=== PATIENT | female | born 1985 | race Two or more races ===

== ENCOUNTER → 2017-02-06 | Outpatient (CLI) | payer OTHER ==
[~2017-02-06] MED LIST: NAPR220C2 PO
== END ==
LOC: STAR 15:31
PROVIDERS: ATTEND Obstetrics & Gynecology Female Pelvic Medicine and Reconstructive Surgery
DX: Z02.9 Encounter for administrative examinations, unspecified (principal)

== ENCOUNTER 2017-02-13 14:05 | Day surgery (SDC) | payer OTHER ==
[2017-02-06 15:48] VITALS: BP 140/94
[~2017-02-13] VITALS: Ht 157.5 cm; Wt 80.6 kg
[~2017-02-13 14:05] MED LIST changes: +BUPIVACAINE/PF 0.25% ONE
[2017-02-13] MEDS ORDERED: LACTATED RINGERS 1,000 ML IV SCH ×3 (14:41→20:10)
[2017-02-13 15:12] LABS: HCG UR LOT HCG706132
[2017-02-13 15:21] LABS: HCG UR OBC PASS
[2017-02-13] MEDS ORDERED: FENTANYL PF 100 MCG/2ML ONE ×2 (15:40→18:22)
[2017-02-13] MEDS ORDERED: MIDAZOLAM 1 MG/ML, 2ML ONE (15:40)
[2017-02-13] MEDS ORDERED: LIDOCAINE-MPF 2% ,5ML ONE (15:41)
[2017-02-13] MEDS ORDERED: PROPOFOL 10 MG/ML, 20ML ONE (15:41)
[2017-02-13] MEDS ORDERED: ROCURONIUM 10 MG/ML,10ML ONE (15:42)
[2017-02-13] MEDS ORDERED: DEXAMETHASONE 4 MG/ML, 1ML ONE (16:22)
[2017-02-13] MEDS ORDERED: ONDANSETRON 2MG/ML, 2ML ONE ×2 (16:22)
[2017-02-13] MEDS ORDERED: HYDROmorphone 1 MG/ML, 1ML ONE (16:29)
[2017-02-13] MEDS ORDERED: GLYCOPYRROLATE 0.2MG/1ML, 5ML ONE (17:14)
[2017-02-13] MEDS ORDERED: KETAMINE 10 MG/ML, 20ML ONE (17:14)
[2017-02-13] MEDS ORDERED: NEOSTIGMINE 1 MG/ML, 10ML ONE (17:14)
[2017-02-13] MEDS ORDERED: KETOROLAC 30 MG/1 ML ONE (17:14)
[2017-02-13] MEDS ORDERED: CEFOTETAN 2 GM ONE (17:14)
[2017-02-13] MEDS ORDERED: BUPIVACAINE/PF 0.25% INFIL ONE (17:39)
[2017-02-13] MEDS: FENTANYL PF 100 MCG/2ML IV PRN ×2 (18:13→18:38)
[2017-02-13] MEDS ORDERED: ACETAMINOPHEN 650 MG/20.3 ML UDC ONE (18:21)
[2017-02-13] MEDS ORDERED: OXYcodone 5 MG/5 ML ORAL.SOL UDC ONE (18:22)
[2017-02-13] MEDS ORDERED: ACETAMINOPHEN 325 MG TABLET PO PRN (18:30)
[2017-02-13] MEDS ORDERED: MEPERIDINE/PF 25MG/0.5ML IVPush PRN (18:30)
[2017-02-13] MEDS ORDERED: LABETALOL 5MG/ML, 20ML IV PRN (18:30)
[2017-02-13] MEDS ORDERED: PROMETHAZINE 25 MG/ML, 1ML IV PRN (18:30)
[2017-02-13] MEDS ORDERED: HYDROmorphone 2 MG/ML, 1ML IV PRN ×2 (18:30→20:30)
[2017-02-13] MEDS ORDERED: ONDANSETRON 2MG/ML, 2ML IVPush PRN (18:30)
[2017-02-13] MEDS ORDERED: OXYcodone 5 MG/5 ML ORAL.SOL UDC PO PRN (18:30)
[2017-02-13] MEDS ORDERED: hydrALAzine 20 MG/ML, 1ML IV PRN (18:30)
[2017-02-13] MEDS ORDERED: MEPERIDINE/PF 50 MG/ML ONE (18:41)
[2017-02-13] MEDS ORDERED: ONDANSETRON 2MG/ML, 2ML IV PRN (20:30)
[2017-02-13] MEDS ORDERED: KETOROLAC 30 MG/1 ML IV PRN (20:30)
[2017-02-13] MEDS ORDERED: IBUPROFEN 600 MG TABLET PO PRN (20:30)
[2017-02-13] MEDS ORDERED: OXYcodone/APAP 5/325MG TABLET PO PRN (20:30)
[2017-02-13] MEDS ORDERED: HYDROcodone/APAP 5/325 TABLET PO PRN (20:30)
== END 2017-02-13 20:47 | disposition home or self-care (01) ==
LOC: OUT 14:05 → 4NOR 19:34 → OUT 20:47
PROVIDERS: ATTEND Obstetrics & Gynecology Female Pelvic Medicine and Reconstructive Surgery
DX: N94.6 Dysmenorrhea, unspecified (principal); N94.10 Unspecified dyspareunia; N80.3 Endometriosis of pelvic peritoneum; K66.0 Peritoneal adhesions (postprocedural) (postinfection); Z98.890 Other specified postprocedural states
CPT/HCPCS: 58662; 81025; 88305; J1100; J1170; J1885; J2175; J2250; J2405; J2704; J2710; J3010; J3490; J7120; S0074